=== PATIENT | female | born 1965 | race Caucasian/White ===

== ENCOUNTER 2024-04-24 02:17 | Emergency (ER) | payer BC, OTHER ==
[2024-04-24 02:38] VITALS: TEMP 97
[2024-04-24 03:00] LABS: Absolute Neutrophil Ct (ANC) 2.54 x10^3/uL (1.56-6.13); BASOPHIL % 0.9 % (0.1-1.2); Basophil (Absolute #) 0.06 x10^3/uL (0.01-0.08); Eosinophil % 1.4 % (0.7-5.8); Hematocrit 42.1 % (34.1-44.9); IMMATURE GRAN # 0.01 x10^3u/L (0.001-0.031); IMMATURE GRAN % 0.1 % (0.001-0.429); Lymphocyte (Absolute #) 3.62 x10^3/uL (1.18-3.74); Lymphocytes % 51.9 % (19.3-51.7); Mean Cell Volume 88.4 fL (79.4-94.8); Mean Corpuscular Hemoglobin 29.4 pg (25.6-32.2); Mean Corpuscular Hgb Concent. 33.3 g/dL (32.2-35.5); Mean Platelet Volume 12.7 fL (9.4-12.3); Monocyte (Absolute #) 0.65 x10^3/uL (0.24-0.86); Monocytes % 9.3 % (4.7-12.5); Neutrophil % 36.4 % (34.0-71.1); Platelet Count 164 x10^3/uL (182-369); Red Blood Count 4.76 x10^6/uL (3.93-5.22); Red Cell Distribution Width 13.1 % (11.7-14.4)
--- NOTE | 2024-04-24 03:08 | ERPHSYRPT ---
- History of Present Illness Time Seen by Provider: 04/24/24 02:30 Historian: patient Exam Limitations: no limitations Patient Subjective Stated Complaint: pt states that she woke up with chest pain that radiates to her left arm Triage Nursing Assessment: pt ambulated into the er; pt is axo x4; c/o chest pain; pt staes 3/10 pain to chest; pt states pain radiates to left arm; clear bounding apical heart tone; strong temo radial pulses and strong temo pedal pulses; no edema present; clear lung sounds in all lobes; no respiratory distress present; skin PDW; hypertensive Physician History: The patient presents with chest pain and tingling in the arm. They woke up with chest pain and tingling in the arm, describing a sensation of pressure in the chest. No previous episodes of similar symptoms have occurred. No history of diabetes, high cholesterol, high blood pressure, or thyroid issues. No nausea, vomiting, diarrhea, or swelling in the legs. No unusual heartbeats. They have not recently started any new workouts or physical activities and have not taken any aspirin or nitroglycerin for the symptoms. Timing/Duration: today, sudden Activities at Onset: sleep Quality: pressure Location: substernal Chest Pain Radiation: arm (left) Severity of Pain-Max: moderate Severity of Pain-Current: mild Modifying Factors: Improves With: nothing. Worsens With: movement, palpation Associated Symptoms: No nausea, No vomiting, No palpitations, No heartburn, No abdominal pain, No shortness of breath Prior Chest Pain/Cardiac Workup: no prior chest pain Nitro Today/Relief: no nitro taken today Aspirin Treatment Today: no aspirin today Allergies/Adverse Reactions: Sulfa (Sulfonamide Antibiotics) Allergy (Verified 04/24/24 02:18) Hives Home Medications: Alendronate Sodium 70 mg [Fosamax 70 MG] 70 mg PO WEEKLY 04/24/24 [History] Calcium Carbonate/Vitamin D3 [Calcium 500Mg-Vit D3 10Mcg Tab] 1 each PO DAILY 04/24/24 [History] Cetirizine HCl [Zyrtec] 10 mg PO DAILY 04/24/24 [History] Meloxicam 15 mg [Meloxicam 15 MG] 15 mg PO DAILY 04/24/24 [History] Montelukast Sodium 10 mg PO DAILY 04/24/24 [History] Hx Tetanus, Diphtheria Vaccination/Date Given: Yes Hx Influenza Vaccination/Date Given: No Hx Pneumococcal Vaccination/Date Given: No Immunizations Up to Date: No Travel Risk - International Travel Have you traveled outside of the country in past 3 weeks: No - Emerging Infectious Disease Are you exhibiting symptoms associated with any current EIDs: No - Review of Systems All Other Systems: Reviewed and Negative - Past Medical History Pertinent Past Medical History: Yes Neurological History: No Pertinent History ENT History: No Pertinent History Cardiac History: No Pertinent History Respiratory History: No Pertinent History Endocrine Medical History: No Pertinent History Musculoskeletal History: Osteoporosis GI Medical History: No Pertinent History History: No Pertinent History Psycho-Social History: No Pertinent History Female Reproductive Disorders: No Pertinent History Other Medical History: allergies - Past Surgical History Past Surgical History: Yes Neuro Surgical History: No Pertinent History Cardiac: No Pertinent History Respiratory: No Pertinent History Gastrointestinal: No Pertinent History Genitourinary: No Pertinent History Musculoskeletal: No Pertinent History Female Surgical History: No Pertinent History - Social History Smoking Status: Never smoker Exposure to second hand smoke: No Drug Use: none - Social Determinants of Health Will the patient participate in the screening: Yes Do you worry about a steady place to live?: No Do you have any problems with any of the following?: No known problems In the past 12 months,have you had to go without utilities?: No Transportation Issues: No Has anyone in your support network made you feel unsafe?: No Have you or anyone in your house had to go without enough: No - Nursing Vital Signs Nursing Vital Signs: Initial Vital Signs Temperature 97 F 04/24/24 02:17 Pulse Rate 66 04/24/24 02:17 Respiratory Rate 20 04/24/24 02:17 Blood Pressure 203/93 04/24/24 02:17 O2 Sat by Pulse Oximetry 98 04/24/24 02:17 Pain Scale Pain Intensity 0 - Physical Exam General Appearance: no apparent distress Eye Exam: eyes nml inspection Ears, Nose, Throat Exam: normal ENT inspection Neck Exam: normal inspection, supple, full range of motion Respiratory Exam: normal breath sounds, lungs clear, airway intact, No respiratory distress Cardiovascular Exam: regular rate/rhythm, capillary refill <2 sec, other (tenderness anterior chest wall), No edema Neurologic Exam: alert, oriented x 3, cooperative, 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, normal mood/affect, nml cerebellar function, nml station & gait, sensation nml Skin Exam: normal color, warm, dry, No rash SpO2 Interpretation: normal SpO2: 95 O2 Delivery: Room Air - Course Nursing assessment & vital signs reviewed: Yes EKG Interpreted by Me: RATE (65), Sinus Rhythm, NORMAL AXIS, NORMAL INTERVALS, NORMAL QRS, NORMAL ST-T - Radiology Exams Chest X-ray Interpretation: Interpreted by me, Negative Lab/Rad Data: Laboratory Result Diagrams 04/24/24 02:53 04/24/24 02:53 Laboratory Results 04/24/24 04/24/24 04/24/24 Range/Units 05:23 03:00 02:53 WBC (3.98-10.04) x10^3/uL RBC (3.93-5.22) x10^6/uL Hgb (11.2-15.7) g/dL Hct (34.1-44.9) % MCV (79.4-94.8) fL MCH (25.6-32.2) pg MCHC (32.2-35.5) g/dL RDW (11.7-14.4) % Plt Count (182-369) x10^3/uL MPV (9.4-12.3) fL Gran % (34.0-71.1) % Immature Gran % (Auto) (0.001-0.429) % Nucleat RBC Rel Count (0.00-0.2) % Eos # (Auto) (0.04-0.36) x10^3/uL Immature Gran # (Auto) (0.001-0.031) x10^3u/L Absolute Lymphs (auto) (1.18-3.74) x10^3/uL Absolute Monos (auto) (0.24-0.86) x10^3/uL Absolute Nucleated RBC (0.00-0.012) x10^3u/L Lymphocytes % (19.3-51.7) % Monocytes % (4.7-12.5) % Eosinophils % (0.7-5.8) % Basophils % (0.1-1.2) % Absolute Granulocytes (1.56-6.13) x10^3/uL Basophils # (0.01-0.08) x10^3/uL Sodium (135-145) mmol/L Potassium (3.5-5.1) mmol/L Chloride (98-107) mmol/L Carbon Dioxide (22-30) mmol/L Anion Gap (5-15) MEQ/L BUN (7-17) mg/dL Creatinine (0.52-1.04) mg/dL Estimated GFR ML/MIN Glucose (74-106) mg/dL Calcium (8.4-10.2) mg/dL Total Bilirubin (0.2-1.3) mg/dL AST (14-36) U/L ALT (0-35) U/L Alkaline Phosphatase (38-126) U/L Troponin I < 0.012 < 0.012 (0.000-0.033) ng/mL Serum Total Protein (6.3-8.2) g/dL Albumin (3.5-5.0) g/dL Free T4 1.03 (0.78-2.19) ng/dL TSH 3rd Generation (0.470-4.680) mIU/L 04/24/24 04/24/24 Range/Units 02:53 02:53 WBC 7.0 (3.98-10.04) x10^3/uL RBC 4.76 (3.93-5.22) x10^6/uL Hgb 14.0 (11.2-15.7) g/dL Hct 42.1 (34.1-44.9) % MCV 88.4 (79.4-94.8) fL MCH 29.4 (25.6-32.2) pg MCHC 33.3 (32.2-35.5) g/dL RDW 13.1 (11.7-14.4) % Plt Count 164 L (182-369) x10^3/uL MPV 12.7 H (9.4-12.3) fL Gran % 36.4 (34.0-71.1) % Immature Gran % (Auto) 0.1 (0.001-0.429) % Nucleat RBC Rel Count 0.0 (0.00-0.2) % Eos # (Auto) 0.10 (0.04-0.36) x10^3/uL Immature Gran # (Auto) 0.01 (0.001-0.031) x10^3u/L Absolute Lymphs (auto) 3.62 (1.18-3.74) x10^3/uL Absolute Monos (auto) 0.65 (0.24-0.86) x10^3/uL Absolute Nucleated RBC 0.00 (0.00-0.012) x10^3u/L Lymphocytes % 51.9 H (19.3-51.7) % Monocytes % 9.3 (4.7-12.5) % Eosinophils % 1.4 (0.7-5.8) % Basophils % 0.9 (0.1-1.2) % Absolute Granulocytes 2.54 (1.56-6.13) x10^3/uL Basophils # 0.06 (0.01-0.08) x10^3/uL Sodium 142 (135-145) mmol/L Potassium 3.5 (3.5-5.1) mmol/L Chloride 105 (98-107) mmol/L Carbon Dioxide 31 H (22-30) mmol/L Anion Gap 8.6 (5-15) MEQ/L BUN 13 (7-17) mg/dL Creatinine 0.74 (0.52-1.04) mg/dL Estimated GFR 92.6 ML/MIN Glucose 111 H (74-106) mg/dL Calcium 9.6 (8.4-10.2) mg/dL Total Bilirubin 0.30 (0.2-1.3) mg/dL AST 42 H (14-36) U/L ALT 34 (0-35) U/L Alkaline Phosphatase 79 (38-126) U/L Troponin I (0.000-0.033) ng/mL Serum Total Protein 7.1 (6.3-8.2) g/dL Albumin 4.6 (3.5-5.0) g/dL Free T4 (0.78-2.19) ng/dL TSH 3rd Generation 10.233 H (0.470-4.680) mIU/L - Progress Progress: improved Air Movement: good Progress Note: DDx ACS, PE, AAA, Unstable angina, Aortic Dissection, GERD, Gastritis, Trauma, Viral Infection, MSK Pain, Costochondritis, Chest wall pain, Myalgia, COPD, CHF, Pleurisy, CHF, Biliary Disease -Vital Signs unremarkable -Overall well appearing -No abnormal cardiopulmonary findings. No respiratory distress. Abdomen soft and nontender. -Story is minimally concerning for ACS, PE, dissection given atypical nature of pain and risk factors/history/exam -PERC negative Labs and imaging unremarkable except for elevated TSH with normal free T4, troponin negative. Vitals have remained stable. Remains PERC negative. Patient states they feel much better after treatment. Discussed admission vs. discharge and risks/benefits of both. Patient states they feel well to go home and would like to do so without any apparent barriers to learning. Return precautions were extensively discussed and they understand to return immediately for any worsening symptoms or failure to improve. Blood Culture(s) Obtained: No Antibiotics given: No Counseled pt/family regarding: lab results, diagnosis, need for follow-up, rad results Medical Desision Making - Diagnostic Testing Diagnostic test were ordered, analyzed, and reviewed by me: Yes Radiological Interpretation: Interpreted by me - Risk of complications The pt has a mod risk of morbidity or mortality based on: Need for prescription drug management - Departure Departure Disposition: Home Clinical Impression: Chest pain, Elevated TSH, Elevated blood pressure reading without diagnosis of hypertension Condition: Good Critical Care Time: No Referrals: SIMEON GORDON MD [Primary Care Provider] - Follow up/PCP as directed Instructions: Chest Pain (DC)
[2024-04-24 03:39] LABS: ALBUMIN 4.6 g/dL (3.5-5.0); ANION GAP 8.6 MEQ/L (5-15); BILIRUBIN,TOTAL 0.3 mg/dL (0.2-1.3); Calcium 9.6 mg/dL (8.4-10.2); Creatinine 1 0.74 mg/dL (0.52-1.04); EST GLOMERULAR FILTRATION RATE 92.6 ML/MIN; Potassium 3.5 mmol/L (3.5-5.1); TSH, 3RD Generation 10.233 mIU/L (0.470-4.680); Total Protein 7.1 g/dL (6.3-8.2)
[2024-04-24 06:31] VITALS: BP 143/96; PULSE 67; RESP 17
--- NOTE | 2024-04-24 08:08 | XRAY ---
Indication: Chest pain. Comparison: January 10, 2022 Portable apical lordotic chest again demonstrates normal heart and lungs. Bony thorax intact again with mild dextroscoliosis. No new/acute findings.
[2024-04-29 22:43] VITALS: O2SAT 95
== END 2024-04-24 06:37 | disposition home or self-care (01) ==
LOC: ED 02:17
DX: R07.9 Chest pain, unspecified (principal); R79.89 Other specified abnormal findings of blood chemistry; R03.0 Elevated blood-pressure reading, without diagnosis of hypertension
CPT/HCPCS: 36415; 71045; 80053; 84439; 84443; 84484; 85025; 93005; 99284; 99285